=== PATIENT | male | born 1970 | race Caucasian/White ===

== ENCOUNTER 2018-09-07 09:14 | Emergency (ER) | payer OTHER ==
--- NOTE | 2018-09-07 09:21 | ED Physician Documentation ---
PD HPI HEENT - Stated complaint Stated Complaint: FACE SWOLLEN - History obtained from History obtained from: Patient - History of Present Illness Timing - onset: How many days ago (several days - had had left dental infection and was on PCN with improvement and had teeth extracted 5 days ago. Now with swelling right upper incisor tooth despite being still on PCN. Seen by dentist again and changed to flagyl/keflex yesterday, with first doses in afternoon. He has some increase in facial swelling today, so concerned meds not working. Has less pain though.) Timing - duration: Days Timing - details: Gradual onset, Still present Location: Tooth (right upper tooth and gum with some redness to right cheek and this morning to lower lid area. No pain with eye movement.) Associated symptoms: Facial swelling (right cheek). No: Fever, Trismus, Headache Similar symptoms before: Diagnosis (dental infection) Recently seen: Clinic (dentist yesterday) Review of Systems Constitutional: denies: Fever, Chills, Myalgias Eyes: denies: Decreased vision Nose: denies: Rhinorrhea / runny nose, Congestion Throat: reports: Dental pain / toothache. denies: Oral lesions / sores, Sore throat PD PAST MEDICAL HISTORY - Past Medical History Cardiovascular: None Respiratory: None - Present Medications Home Medications: Ambulatory Orders Medication Instructions Recorded Confirmed Cephalexin [Keflex] 500 mg PO Q6H 09/07/18 09/07/18 Metronidazole 500 mg PO Q6H 09/07/18 09/07/18 - Allergies Allergies/Adverse Reactions: Allergies Allergy/AdvReac Type Severity Reaction Status Date / Time No Known Drug Allergies Allergy Verified 09/07/18 09:22 PD ED PE NORMAL - Vitals Vital signs reviewed: Yes - General General: Alert and oriented X 3, No acute distress, Well developed/nourished - HEENT HEENT: EOMI (without pain), Pharynx benign. No: Dentition benign (caries diffuse, with right upper incisor having much decay, swelling and tenderness at gum, without fluctuance. Right cheek up to the lower lid with puffiness and some redness but not firm nor abscess. ) - Neck Neck: Supple, no meningeal sign - Cardiac Cardiac: RRR, No murmur - Respiratory Respiratory: Clear bilaterally - Derm Derm: Normal color, Warm and dry - Neuro Neuro: Alert and oriented X 3, No motor deficit, Normal speech Results - Vitals Vitals: Vital Signs - 24 hr 09/07/18 09:18 Temperature 36.8 C Heart Rate 90 Respiratory 18 Rate Blood Pressure 135/95 H O2 Saturation 99 Oxygen O2 Source Room air PD MEDICAL DECISION MAKING - ED course Complexity details: considered differential (slight worsening facial swelling since started abx yesterday afternoon. No abscess drainable. ), d/w patient Departure - Departure Disposition: 01 Home, Self Care Clinical Impression: Dental infection, Facial cellulitis Condition: Stable Record reviewed to determine appropriate education?: Yes Instructions: ED Abscess Dental Comments: I would continue the current antibiotics you started yesterday. Add some ibuprofen or naproxen if needed for pains. Recheck if not improving over the next few days or return if continued worsening over the next couple of days. Follow-up with a dentist as planned next week. Discharge Date/Time: 09/07/18 09:58
[2018-09-07 09:22] VITALS: BP 135/95
== END 2018-09-07 09:58 | disposition home or self-care (01) ==
LOC: ED 09:14
DX: K04.7 Periapical abscess without sinus (principal); L03.211 Cellulitis of face
CPT/HCPCS: 99281; 99284